=== PATIENT | female | born 1970 | race Caucasian/White ===

== ENCOUNTER → 2023-03-27 08:32 | Outpatient (REF) | payer OTHER, SELFPAY | LOC: HWRAD 08:32 | PROVIDERS: ATTENDING PHYSICIAN Family Medicine | DX: R10.12 Left upper quadrant pain (principal) | CPT/HCPCS: 76705 ==

== ENCOUNTER → 2023-04-12 08:56 | Outpatient (REF) | payer OTHER, SELFPAY | LOC: HWRAD 08:56 | PROVIDERS: ATTENDING PHYSICIAN Physician Assistant Medical | DX: R31.0 Gross hematuria (principal); M54.9 Dorsalgia, unspecified | CPT/HCPCS: 76770 ==

== ENCOUNTER → 2023-05-12 15:05 | Outpatient (REF) | payer OTHER, SELFPAY | LOC: CLAB 15:05 | PROVIDERS: ATTENDING PHYSICIAN Surgery | DX: D17.1 Benign lipomatous neoplasm of skin and subcutaneous tissue of trunk (principal) | CPT/HCPCS: 88304 ==

== ENCOUNTER → 2023-05-30 08:43 | Outpatient (REF) | payer OTHER, SELFPAY | LOC: HWRAD 08:43 | PROVIDERS: ATTENDING PHYSICIAN Surgery; FAMILY PHYSICIAN Family Medicine | DX: R10.12 Left upper quadrant pain (principal) | CPT/HCPCS: 74150 ==

== ENCOUNTER → 2024-05-06 16:00 | Outpatient (REF) | payer OTHER, SELFPAY | LOC: RCS 16:00 | PROVIDERS: ATTENDING PHYSICIAN Nuclear Medicine Nuclear Cardiology; FAMILY PHYSICIAN Family Medicine | DX: R00.2 Palpitations (principal); R55 Syncope and collapse; E78.5 Hyperlipidemia, unspecified; I95.1 Orthostatic hypotension | CPT/HCPCS: 93306 ==

== ENCOUNTER → 2024-05-15 15:00 | Outpatient (REF) | payer OTHER, SELFPAY | LOC: RCS 15:00 | PROVIDERS: ATTENDING PHYSICIAN Nuclear Medicine Nuclear Cardiology; FAMILY PHYSICIAN Family Medicine | DX: R00.2 Palpitations (principal); R55 Syncope and collapse; I95.1 Orthostatic hypotension | CPT/HCPCS: 93017 ==